=== PATIENT | male | born 1970 | race Caucasian/White ===

== ENCOUNTER 2021-03-10 00:54 | Emergency (ER) | payer SELFPAY ==
[2021-03-10 02:29] LABS: Absolute Lymphocytes (CBC) 1.3 K/uL (0.7-4.9); Hematocrit 51.9 % (39.6-49.0); Lymphocytes % 8.7 % (15.3-44.8); MPV 7.2 fL (7.6-11.3); Protime INR 1.07; RBC Red Blood Cell Count 6.08 M/uL (4.33-5.43)
[2021-03-10 02:42] LABS: ALT/SGPT 37 U/L (12-78); AST/SGOT 22 U/L (15-37); Albumin 3.7 g/dL (3.4-5.0); Alkaline Phosphatase 124 U/L (45-117); BUN Blood Urea Nitrogen 16 mg/dL (7-18); Bicarbonate 28 mmol/L (21-32); Bilirubin Direct 0.1 mg/dL (0-0.2); Bilirubin Total 0.5 mg/dL (0.2-1.0); Glucose Level 104 mg/dL (74-106); Magnesium 2.5 mg/dL (1.8-2.4); NT PRO-BNP 14 pg/mL (<125); Potassium 4.1 mmol/L (3.5-5.1); Protein, Total 8.3 g/dL (6.4-8.2); Sodium Level 139 mmol/L (136-145); Troponin (Emerg Dept Use Only) < 0.02 ng/mL (0.0-0.045)
[2021-03-10] MEDS ORDERED: CEFTRIAXONE 1000 MG/VIAL ONE (04:16)
[2021-03-10] MEDS ORDERED: NA CHLORIDE 0.9% 100 ML ONE (04:17)
--- NOTE | 2021-03-10 04:19 | EDPHYS ---
Physician Documentation [facility] Name: Samir Castellanos Age: 50 yrs Sex: Male : 1970 Arrival Date: 03/10/2021 Time: 00:55 Bed 25 Private MD: ED Physician Guillaume Hilton HPI: 03/10 02:53 This 50 yrs old Male presents to ER via EMS with complaints of shortness of breath. jr8 02:53 The patient has shortness of breath at rest. Onset: The symptoms/episode began/occurred jr8 acutely, today. Duration: The symptoms are continuous. The patient's shortness of breath is aggravated by light activity. Associated signs and symptoms: Pertinent negatives: chest pain. Severity of symptoms: At their worst the symptoms were moderate in the emergency department the symptoms have improved mildly. The patient has not experienced similar symptoms in the past. The patient has not recently seen a physician. Historical: - Allergies: 01:24 NKA; lp1 - Home Meds: 01:24 None [Active]; lp1 - PMHx: 01:24 None; lp1 - PSHx: 01:24 Appendectomy; lp1 - Immunization history:: Adult Immunizations up to date. - Social history:: Smoking status: Patient reports the use of cigarette tobacco products, smokes one pack cigarettes per day. ROS: 02:53 Eyes: Negative for injury, pain, redness, and discharge, ENT: Negative for injury, jr8 pain, and discharge, Neck: Negative for injury, pain, and swelling, Cardiovascular: Negative for chest pain, palpitations, and edema, Abdomen/GI: Negative for abdominal pain, nausea, vomiting, diarrhea, and constipation, Back: Negative for injury and pain, MS/Extremity: Negative for injury and deformity, Skin: Negative for injury, rash, and discoloration, Neuro: Negative for headache, weakness, numbness, tingling, and seizure. 02:53 Respiratory: Positive for shortness of breath. Exam: 02:53 Constitutional: This is a well developed, well nourished patient who is awake, alert, jr8 and in no acute distress. Eyes: Pupils equal round and reactive to light, extra-ocular motions intact. Lids and lashes normal. Conjunctiva and sclera are non-icteric and not injected. Cornea within normal limits. Periorbital areas with no swelling, redness, or edema. ENT: Nares patent. No nasal discharge, no septal abnormalities noted. Tympanic membranes are normal and external auditory canals are clear. Oropharynx with no redness, swelling, or masses, exudates, or evidence of obstruction, uvula midline. Mucous membranes moist. Neck: Trachea midline, no thyromegaly or masses palpated, and no cervical lymphadenopathy. Supple, full range of motion without nuchal rigidity, or vertebral point tenderness. No Meningismus. 02:53 Cardiovascular: Rate: tachycardic, Pulses: Pulses are 2+ in right radial artery and left radial artery. Heart sounds: normal, normal S1and S2, no S3 or S4, no murmur, no rub, no gallop, Edema: is not appreciated. 02:53 Respiratory: the patient does not display signs of respiratory distress, Respirations: normal, Breath sounds: are clear throughout, no bronchial sounds, no decreased breath sounds, no rales, rhonchi, no stridor, no wheezing. Vital Signs: 01:22 BP 159 / 120; Pulse 115; Resp 20; Temp 98.5(O); Pulse Ox 96% on R/A; Weight 108.86 kg; lp1 Height 5 ft. 8 in. (172.72 cm); 01:40 BP 157 / 99; Pulse 112; Resp 22; Temp 99.0; Pulse Ox 96% on R/A; Weight 113.4 kg; iván Height 5 ft. 8 in. (172.72 cm); Pain 0/10; 04:00 BP 129 / 96; Pulse 101; Resp 22; Temp 99.0; Pulse Ox 97% on R/A; Pain 0/10; iván 01:40 Body Mass Index 38.01 (113.40 kg, 172.72 cm) iván MDM: 01:34 Patient medically screened. jr8 02:53 Data reviewed: vital signs, nurses notes, lab test result(s), EKG, radiologic studies, jr8 plain films. Data interpreted: Pulse oximetry: on room air is 96 %. Interpretation: normal. Counseling: I had a detailed discussion with the patient and/or guardian regarding: the historical points, exam findings, and any diagnostic results supporting the discharge/admit diagnosis, lab results, radiology results. 03/10 01:28 Order name: Basic Metabolic Panel lp1 01/04 01:28 Order name: CBC with Diff 03/10 01:28 Order name: LFT's 03/10 01:28 Order name: Magnesium lp03/10 01:28 Order name: NT PRO-BNP lp03/10 01:28 Order name: PT-INR; Complete Time: 02:52 lp1 03/10 01:28 Order name: Troponin (emerg Dept Use Only); Complete Time: 02:52 lp1 03/10 01:28 Order name: Basic Metabolic Panel; Complete Time: 02:52 EDMS 03/10 01:28 Order name: CBC with Automated Diff; Complete Time: 02:52 EDMS 03/10 01:28 Order name: Liver (Hepatic) Function; Complete Time: 02:52 EDMS 03/10 01:28 Order name: Magnesium; Complete Time: 02:52 EDMS 03/10 01:28 Order name: NT PRO-BNP; Complete Time: 02:52 EDMS 03/10 02:07 Order name: COVID-19 SARS RT PCR (Document "Date of Onset" if Symptomatic) 03/10 02:08 Order name: SARS-COV-2 RT PCR; Complete Time: 04:07 EDMS 03/10 01:28 Order name: XRAY Chest (1 view) 03/10 01:28 Order name: EKG; Complete Time: 01:28 03/10 01:28 Order name: Cardiac monitoring; Complete Time: 01:28 03/10 01:28 Order name: EKG - Nurse/Tech; Complete Time: 01:28 03/10 01:28 Order name: IV Saline Lock; Complete Time: 01:28 03/10 01:28 Order name: Labs collected and sent; Complete Time: 01:28 03/10 01:28 Order name: O2 Per Protocol; Complete Time: 01:28 03/10 01:28 Order name: O2 Sat Monitoring; Complete Time: 01:28 lp Administered Medications: 04:15 Drug: Rocephin (cefTRIAXone) 1 grams Route: IV; Rate: calculated rate; Site: left iván antecubital; Disposition: 04:16 Co-signature as Attending Physician, Guillaume Hilton MD. pkl Disposition Summary: 03/10/21 04:18 Discharge Ordered Location: Home pkl Problem: new pkl Symptoms: have improved pkl Condition: Stable pkl Diagnosis - Pneumonia. Hypertension pkl Followup: pkl - With: Private Physician - When: 2 - 3 days - Reason: Re-evaluation by your physician Discharge Instructions: - Discharge Summary Sheet pkl Forms: - Medication Reconciliation Form pkl - Thank You Letter pkl - Antibiotic Education pkl - Prescription Opioid Use pkl Prescriptions: - Augmentin 875-125 mg Oral Tablet - take 1 tablet by ORAL route every 12 hours for 10 days; 20 tablet; Refills: 0, pkl Product Selection Permitted - Carvedilol 12.5 mg Oral Tablet - take 1 tablet by ORAL route 2 times per day with food; 60 tablet; Refills: 0, pkl Product Selection Permitted Signatures: Dispatcher [employer] Guillaume Saravia MD MD pkl Jen Montano RN RN lp1 Miquel Jeff PA PA jr8 Cookie Anguiano RN RN iván
--- NOTE | 2021-03-10 04:19 | ER ---
Nurse's Notes [facility] Name: Samir Castellanos Age: 50 yrs Sex: Male : 1970 Arrival Date: 03/10/2021 Time: 00:55 Bed 25 Private MD: Diagnosis: Pneumonia. Hypertension Presentation: 03/10 01:22 Chief complaint: EMS states: acute onset of shortness of breath, per EMS, patient lp1 hypertensive. Coronavirus screen: At this time, the client does not indicate any symptoms associated with coronavirus-19. Ebola Screen: No symptoms or risks identified at this time. Initial Sepsis Screen: Does the patient meet any 2 criteria? No. Patient's initial sepsis screen is negative. Does the patient have a suspected source of infection? No. Patient's initial sepsis screen is negative. Risk Assessment: Do you want to hurt yourself or someone else? Patient reports no desire to harm self or others. Onset of symptoms was March 10, 2021. 01:22 Method Of Arrival: EMS: [facility] 1 01:22 Acuity: ONUR 2 lp1 Historical: - Allergies: 01:24 NKA; lp1 - Home Meds: 01:24 None [Active]; lp1 - PMHx: 01:24 None; lp1 - PSHx: 01:24 Appendectomy; lp1 - Immunization history:: Adult Immunizations up to date. - Social history:: Smoking status: Patient reports the use of cigarette tobacco products, smokes one pack cigarettes per day. Screenin:25 Abuse screen: Denies threats or abuse. Denies injuries from another. Nutritional lp1 screening: No deficits noted. Tuberculosis screening: No symptoms or risk factors identified. Fall Risk None identified. Assessment: 01:25 General: Appears in no apparent distress. Behavior is calm, cooperative. Pain: Denies lp1 pain. Neuro: Level of Consciousness is awake, alert, obeys commands. Cardiovascular: Patient's skin is warm and dry. Respiratory: Respiratory effort is even, Respiratory pattern is regular. Derm: Skin is pink, warm \\T\\ dry. Musculoskeletal: No deficits noted. 04:40 General: The pt is tolerating the IV Rocephin well and has called for his ride home. He iván remains in NAD. . Vital Signs: 01:22 BP 159 / 120; Pulse 115; Resp 20; Temp 98.5(O); Pulse Ox 96% on R/A; Weight 108.86 kg; lp1 Height 5 ft. 8 in. (172.72 cm); 01:40 BP 157 / 99; Pulse 112; Resp 22; Temp 99.0; Pulse Ox 96% on R/A; Weight 113.4 kg; iván Height 5 ft. 8 in. (172.72 cm); Pain 0/10; 04:00 BP 129 / 96; Pulse 101; Resp 22; Temp 99.0; Pulse Ox 97% on R/A; Pain 0/10; iván 01:40 Body Mass Index 38.01 (113.40 kg, 172.72 cm) iván ED Course: 00:55 Patient arrived in ED. mw2 01:24 Triage completed. lp1 01:24 Arm band placed on. lp1 01:24 Patient has correct armband on for positive identification. Placed in gown. Bed in low lp1 position. ekg monitor tech on. Pulse ox on. NIBP on. 01:24 Initial lab(s) drawn, by me, sent to lab. Missed attempt(s): 20 gauge in left lp1 antecubital area. Missed attempt(s): 22 gauge in right forearm. 01:34 Miquel Jeff PA is PHCP. jr8 01:34 Guillaume Hilton MD is Attending Physician. jr8 01:40 Inserted saline lock: 20 gauge in left antecubital area, using aseptic technique. iván 01:57 XRAY Chest (1 view) In Process Unspecified. EDMS 02:08 COVID-19 SARS RT PCR (Document "Date of Onset" if Symptomatic) Sent. mw2 03:40 Cookie Anguiano, RN is Primary Nurse. iván 04:00 No provider procedures requiring assistance completed. iván 04:07 Basic Metabolic Panel Sent. iván 04:07 CBC with Diff Sent. iván 04:07 LFT's Sent. iván 04:07 Magnesium Sent. iván 04:07 NT PRO-BNP Sent. iván Administered Medications: 04:15 Drug: Rocephin (cefTRIAXone) 1 grams Route: IV; Rate: calculated rate; Site: left iván antecubital; Outcome: 04:18 Discharge ordered by . pkl 04:39 Discharged to home iván 04:39 Condition: stable 04:39 Discharge instructions given to patient, Instructed on discharge instructions, follow up and referral plans. medication usage, Prescriptions given X 2. 05:17 Patient left the ED. mw2 Signatures: Dispatcher [employer] EDGuillaume Flowers MD MD pkl Pena, Laura, RN RN lp1 Miquel Jeff PA PA jr8 Wisam Ervin mw2 Cookie Anguiano RN RN iván
[2021-03-10 05:23] VITALS: TEMP 99
[2021-03-10 05:26] VITALS: BP 129/96; O2SAT 97
--- NOTE | 2021-03-10 08:12 | RAD REPORT ---
EXAM DESCRIPTION: Ignacio Single View03/10/2021 1:57 am CLINICAL HISTORY: Shortness of breath COMPARISON: 2017 FINDINGS: The lungs appear clear of acute infiltrate. The heart is normal size IMPRESSION: No acute abnormalities displayed
--- NOTE | 2021-03-10 11:15 | EKG ---
Test Date: 2021-03-10 Test Time: 01:03:41 Health Care Manager: RACHELLE MEASUREMENT RESULTS: Intervals: Rate: 136 [place]: 140 QRSD: 78 QT: 326 QTc: 490 [place]: P: 68 AZ: 140 QRS: 48 T: 72 INTERPRETIVE STATEMENTS: Undetermined rhythm Otherwise normal ECG Compared to ECG 11/15/2016 12:38:02 Sinus rhythm no longer present Electronically Signed On 03-10-21 11:14:04 [employer] by Yasmani Almanza
== END 2021-03-10 05:17 | disposition home or self-care (01) ==
LOC: ER 00:54
DX: J18.9 Pneumonia, unspecified organism (principal); I10 Essential (primary) hypertension; F17.210 Nicotine dependence, cigarettes, uncomplicated; Z20.822 Contact with and (suspected) exposure to COVID-19
CPT/HCPCS: 36415; 71045; 80048; 80076; 83735; 83880; 84484; 85025; 85610; 93005; 96374; 99285; U0003